=== PATIENT | female | born 2000 | race Two or more races ===

== ENCOUNTER → 2024-10-31 | Outpatient (CLI) | payer SELFPAY ==
[2024-10-31 12:35] LABS: Basophils # (auto) 0 10 ^3/uL (0-0.2); Basophils % (auto) 0.1 % (0.0-2.0); Eosinophils # (auto) 0.1 10 ^3/uL (0-0.8); Hematocrit 35.3 % (36.0-46.0); Hemoglobin 12.2 g/dL (12.2-16.2); Lymphocytes # (auto) 1.2 10 ^3/uL (0.4-5.4); Lymphocytes % (auto) 14.2 % (10.0-50.0); Mean Corpuscular Hgb Conc. 34.4 g/dL (32.0-36.0); Monocytes # (auto) 0.5 10 ^3/uL (0-1.3); Monocytes % (auto) 6.3 % (0.0-12.0); Neutrophils # (auto) 6.4 10 ^3/uL (1.6-8.6); Neutrophils % (auto) 78.4 % (37.0-80.0); Platelet Count (auto) 197 10^3/uL (140-450); Red Blood Cells 3.93 10^6/uL (4.0-5.20); Red Cell Distribution Width 15.2 % (11.8-14.3); White Blood Cell 8.2 10^3/uL (4.4-10.8)
== END | disposition home or self-care (01) ==
LOC: LAB 11:29
PROVIDERS: ATTEND Obstetrics & Gynecology
DX: Z34.80 Encounter for supervision of other normal pregnancy, unspecified trimester (principal); Z72.51 High risk heterosexual behavior; Z3A.00 Weeks of gestation of pregnancy not specified
CPT/HCPCS: 36415; 85025; 86703; 86762; 86780; 86850; 86900; 86901; 87086; 87340

== ENCOUNTER 2024-11-11 23:06 | Inpatient (IN) | payer SELFPAY ==
[~2024-11-11] VITALS: Ht 162.6 cm; Wt 94.8 kg
[2024-11-11] MEDS ORDERED: LIDOCAINE 2%HCL (LOCAL ANESTH.) INJ 20ML MDV IJ PRN (23:30)
[2024-11-11] MEDS ORDERED: ONDANSETRON HCL 4 MG/2 ML VIAL IV PRN (23:30)
[2024-11-11 23:58] LABS: Basophils # (auto) 0.1 10 ^3/uL (0-0.2); Basophils % (auto) 0.5 % (0.0-2.0); Eosinophils # (auto) 0.1 10 ^3/uL (0-0.8); Eosinophils % (auto) 1.4 % (0.0-7.0); Hemoglobin 12.3 g/dL (12.2-16.2); Lymphocytes # (auto) 1.8 10 ^3/uL (0.4-5.4); Lymphocytes % (auto) 18.3 % (10.0-50.0); Mean Corpuscular Hgb Conc. 34.3 g/dL (32.0-36.0); Mean Corpuscular Volume 90.4 fL (80.0-100.0); Monocytes # (auto) 0.6 10 ^3/uL (0-1.3); Monocytes % (auto) 6.2 % (0.0-12.0); Neutrophils # (auto) 7.4 10 ^3/uL (1.6-8.6); Neutrophils % (auto) 73.6 % (37.0-80.0); Nucleated Red Blood Cells % 0.1 %; Platelet Count (auto) 199 10^3/uL (140-450); Red Blood Cells 3.98 10^6/uL (4.0-5.20); Red Cell Distribution Width 16.3 % (11.8-14.3)
[2024-11-12] MEDS: LACTATED RINGER'S 1,000 ML IV SCH
[2024-11-12] MEDS: PHISODERM TOP SOLN 240ML BTL TOP PRN
[2024-11-12] MEDS: WITCH HAZEL-GLYCERIN PAD TOP PRN
[2024-11-12] MEDS: DERMOPLAST 60ML BOTTLE TOP PRN
[2024-11-12 00:09] LABS: Urine Bacteria FEW /hpf (None Seen); Urine Blood Negative /uL (Negative); Urine Clarity Clear (Clear); Urine Color Light-Yellow (Yellow); Urine Mucus FEW (None Seen); Urine Protein, UAD Negative (Negative); Urine Specific Gravity 1.025 (1.001-1.035); Urine Squamous Epithelial Cell FEW /hpf (<5); Urine Urobilinogen Normal (Negative); Urine WBC 3 /HPF (0-5); Urine pH 6.5 (5.0-9.0)
[2024-11-12 00:15] LABS: INR 0.95 (0.9-1.15); Partial Thromboplastin Time 29.2 SEC (24.5-34.5); Prothrombin Time 10.1 sec (9.3-11.8)
[2024-11-12 00:16] LABS: Alanine Aminotransferase 11 U/L (7-40); Anion Gap 9 (5-15); BUN/Creatinine Ratio 20.3 (10.0-20.0); Blood Urea Nitrogen 13 mg/dL (9-23); Calcium 9.3 mg/dL (8.7-10.4); Carbon Dioxide 20 mmol/L (20-31); Glucose 98 mg/dL (74-106); Potassium 3.8 mmol/L (3.5-5.1); Sodium 138 mmol/L (136-145); Total Protein 6.8 g/dL (5.7-8.2)
[2024-11-12 00:17] LABS: Alkaline Phosphatase 154 U/L (46-116); Aspartate Aminotransferase 16 U/L (13-40); Bilirubin, Total 0.2 mg/dL (0.2-1.0); Chloride 109 mmol/L (98-107)
[2024-11-12 00:29] LABS: Amphetamine Screen, Urine Neg (NEGATIVE); Barbiturate Scree,Urine Neg (NEGATIVE); Benzodiazephine Screen, Urine Neg (NEGATIVE); Cannabinoid Screen, Urine Neg (NEGATIVE); Cocaine Screen, Urine Neg (NEGATIVE); Opiate Scree,Urine Neg (NEGATIVE); Phencyclidine Screen, Urine Neg (NEGATIVE)
[2024-11-12] MEDS: miSOPROStol 50 MCG per PRE-CUT 1/2 TAB PO PRN (00:34)
[2024-11-12] MEDS ORDERED: TERBUTALINE SULFATE 1 MG/ML 1ML VIAL SC PRN (01:30)
--- NOTE | 2024-11-12 05:29 | DVHHP ---
CHIEF COMPLAINT: Here for induction of labor. HISTORY OF PRESENT ILLNESS: The patient is a 24-year-old 1, para 0 with EDC 02/17, estimated gestational age of 39 weeks, admitted for induction of labor. The patient denies having any vaginal bleeding or rupture of membranes. PAST MEDICAL HISTORY: None. PAST SURGICAL HISTORY: None. SOCIAL HISTORY: None. FAMILY HISTORY: None. OBSTETRIC AND GYNECOLOGIC HISTORY: Primigravid, blood type A positive, rubella equivocal, GBS negative. ALLERGIES: No known drug allergies. REVIEW OF SYSTEMS: Consistent with HPI. PHYSICAL EXAMINATION: VITAL SIGNS: Stable, afebrile. HEENT: Within normal limits. CARDIOVASCULAR: Regular rate and rhythm. LUNGS: Clear to auscultation. BREASTS: Symmetrical. No masses. ABDOMEN: Gravid. Positive heart. PELVIC: Closed, thick, high. EXTREMITIES: No clubbing, cyanosis or edema. IMPRESSION: Intrauterine at 39+ weeks for induction of labor. PLAN: Induction of labor. Proceed. We will proceed with Cytotec. Informed consent obtained. The patient wishes to proceed with planned induction. DO EUGENE Reaves TID: [id number] RECEIPT: [id number]
--- NOTE | 2024-11-12 07:29 | DVHPN2 ---
Chief Complaints Patient reports: No new complaints Nursing reports: No new complaints Objective Medications Current Medications Medications (Trade) Dose Ordered Sig/Jose C Route PRN Reason Start Time Stop Time Status Last Admin Benzocaine (Dermoplast) 1 applic PRN PRN TOP PERINEAL AREA DISCOMFORT 11/11/24 23:30 11/12/24 00:00 Lactated Ringer's 1,000 ml @ 125 mls/hr Q8H IV 11/11/24 23:30 11/12/24 04:57 Lidocaine HCl (Xylocaine) 20 ml ONCE PRN IJ PERINEAL AREA DISCOMFORT 11/11/24 23:30 Misoprostol (Cytotec) 50 mcg Q4HPRN PRN PO CERVICAL RIPENING 11/11/24 23:30 11/12/24 05:32 Nalbuphine HCl (Nubain) 10 mg Q4HP PRN IV MODERATE PAIN (4-6 PAIN SCALE) 11/11/24 23:30 Ondansetron HCl (Zofran) 4 mg Q6HPRN PRN IV NAUSEA / VOMITING 11/11/24 23:30 Sodium Lauryl Sulfate (Phisoderm) 240 ml PRN PRN TOP PERINEAL AREA DISCOMFORT 11/11/24 23:30 11/12/24 00:00 Terbutaline Sulfate (Brethine Inj) 0.25 mg ONCE PRN SC Uterine tachysystole 11/12/24 01:30 Marek Franco (Tucks) 1 pad PRN PRN TOP PERINEAL AREA DISCOMFORT 11/11/24 23:30 11/12/24 00:00 Others ve-unchanged Studies Laboratory Tests 11/11/24 23:44 Test 11/11/24 23:44 Range/Units Serum Glucose 98 74-106 mg/dL Ass/Plan Assessment induction of labor Plan rec 2 cytotec pt endorsed to dr rutherford oncoming physician Visit Coding OBGYN Date of Service: November 12, 2024 Billing Provider: SANJANA LANGE DO PHYSICAL THERAPY TECHNICIAN Common Visit Codes: 37751-UAM/OBS SAME DATE (HIGH) PHYSICAL THERAPY TECHNICIAN Procedure Codes: 78584-33- NON-STRESS TEST SANJANA LANGE DO November 12, 2024 07:29
[2024-11-12] MEDS: DINOPROSTONE 10MG VAG SUPP PV ONE (23:31)
[2024-11-13] MEDS: NALBUPHINE HCL 10 MG/1ml INJECTION IV PRN (04:05)
[2024-11-13] MEDS ORDERED: OXYTOCIN 20 UNT in SODIUM CHLORIDE 0.9% 1,000 ML IV ONE (06:00)
[2024-11-13] MEDS ORDERED: LACT. RINGERS/OXYTOCIN 20UNITS 500 ML IV ONE (06:00)
[2024-11-13] MEDS: LACT. RINGERS/OXYTOCIN 20UNITS 1,000 ML IV SCH (07:29)
--- NOTE | 2024-11-13 09:15 | DVHPN2 ---
Chief Complaints Patient reports: No new complaints Nursing reports: No new complaints, No chest pain, No dizziness, No cough Objective Vitals Vital Signs Date Time Temp Pulse Resp B/P (MAP) Pulse Ox O2 Delivery O2 Flow Rate FiO2 11/13/24 05:05 83 16 112/59 Medications Current Medications Medications (Trade) Dose Ordered Sig/Jose C Route PRN Reason Start Time Stop Time Status Last Admin Oxytocin 1,000 ml @ 6 ml/hr Q24H IV 11/13/24 06:00 11/13/24 07:29 General: Normal Neck: Normal Lungs: Normal Cardiovascular: Normal Abdominal: Soft Musculoskeletal: Normal Extremities: Normal Skin: Normal Neurological: Normal Studies Laboratory Tests 11/11/24 23:44 Test 11/11/24 23:44 Range/Units Serum Glucose 98 74-106 mg/dL Ass/Plan Assessment 39+ weeks induction of labor Plan continue induction SONYA GRECO DO November 13, 2024 09:15
[2024-11-13] MEDS: ePHEDrine SULFATE 50 MG/ML AMP ONE (09:59)
[2024-11-13] MEDS: ePHEDrine SULFATE 50 MG/ML AMP IV ONE (10:00)
[2024-11-13] MEDS: NALOXONE HCL 0.4 MG/ML VIAL IV ONE (10:00)
[2024-11-13] MEDS: ROPIVACAINE HCL 200 ML ONE (10:26)
[2024-11-13] MEDS: LACT. RINGERS/OXYTOCIN 20UNITS 500 ML IV ONE ×2 (15:51)
--- NOTE | 2024-11-13 16:36 | LDN2 ---
Labor and Delivery Note Date 11/13/24 Age 24 1 Para 1 AB n/a EDC 11/17/2024 EGA 39.2 weeks Diagnosis IOL then Vaginal Delivery: VTX Vacuum Assisted: No Placenta: Spontaneous Sex: Female Weight 3440 grams Apgars 8/9 Nuchal Cord Transected: No Amniotic Fluid: Clear Anesthesia Epidural Episiotomy: No Extension: No Repaired with 3-0 Chromic suture EBL QBL: 150 mL Labs Laboratory Tests 10/31/24 11:56: Hepatitis B Surface Antigen Negative, HIV (1&2) Antibody Negative, Rubella Antibody Equivocal Blood Bank 11/11/24 23:44: Blood Type A POSITIVE Complications n/a Conditions Stable Broadcast Chief Engineer Dr. Connell Comments/Significant Med [place] At 1530 this 24yo now delivered a viable Female infant by w/ APGARS 8/9. VÍCTOR. Infant placed skin to skin on pts chest. Cord clamped and cut after 2 minutes. Cord blood sent. Intact 3-vessel cord placenta delivered spontaneously, Lor. Pitocin IV bolus started. Placenta sent to pathology. Patient had epidural anesthesia. Cervix/vagina inspected (intact) and first degree perineal and bilateral labial lacerations present which was repaired with 3-0 Chromic suture. Fundus at U, firm, midline, and light lochia. QBL 150ml. VSS. Count correct x2. Patient to care and baby to couplet care, both stable. Visit Coding OBGYN Date of Service: November 13, 2024 Billing Provider: SONYA GRECO DO CNC SPECIALIST Common Visit Codes: PROCEDURE ONLY CNC SPECIALIST Procedure Codes: 29364-[id number] DEL INCLUDING MOHINDER HARE MDWF November 13, 2024 16:36
[2024-11-13 19:00] VITALS: BP 123/58; PULSE 75; RESP 18; TEMP 99.2; O2SAT 98
[2024-11-13] MEDS ORDERED: ONDANSETRON ODT 4 MG TAB PO PRN (20:00)
[2024-11-13] MEDS: ACETAMINOPHEN 325 MG TAB PO PRN (20:18)
[2024-11-13] MEDS: DOCUSATE SOD 100 MG CAP PO SCH (22:00)
[2024-11-13 23:00] VITALS: BP 113/66; PULSE 74; RESP 16; TEMP 97.7; O2SAT 97
[2024-11-14 03:00] VITALS: BP 111/70; PULSE 68; RESP 18; TEMP 98.6; O2SAT 99
[2024-11-14] MEDS: IBUPROFEN 600 MG TAB PO PRN (03:11)
--- NOTE | 2024-11-14 05:52 | DVHPN2 ---
Chief Complaints Patient reports: No new complaints, Feels better Nursing reports: No new complaints, No abdominal pain, No chest pain, No dizziness, No cough Objective Vitals Vital Signs Date Time Temp Pulse Resp B/P (MAP) Pulse Ox O2 Delivery O2 Flow Rate FiO2 11/14/24 03:00 98.6 68 18 111/70 (84) 99 98.6 11/13/24 20:30 Room Air Medications Current Medications Medications (Trade) Dose Ordered Sig/Jose C Route PRN Reason Start Time Stop Time Status Last Admin Acetaminophen (Tylenol Tablet) 650 mg Q4HP PRN PO MILD PAIN (1-3 PAIN SCALE) 11/13/24 20:00 11/13/24 20:18 Docusate Sodium (Colace Capsule) 200 mg HS PO 11/13/24 22:00 Ibuprofen (Motrin Tablet) 600 mg Q6HP PRN PO MODERATE PAIN (4-6 PAIN SCALE) 11/13/24 20:00 11/14/24 03:11 Ondansetron HCl (Zofran Po) 4 mg Q4HPRN PRN PO NAUSEA / VOMITING 11/13/24 20:00 General: Normal Neck: Normal Lungs: Normal Cardiovascular: Normal Abdominal: Soft (uterus firm 18 weeks size) Musculoskeletal: Normal Extremities: Normal Skin: Normal Neurological: Normal Studies Laboratory Tests 11/11/24 23:44 Test 11/11/24 23:44 Range/Units Serum Glucose 98 74-106 mg/dL Ass/Plan Assessment 39+ weeks induction of labor Plan see dc summary see dc orders SONYA GRECO DO November 14, 2024 05:52
--- NOTE | 2024-11-14 05:56 | DVHDS2 ---
Discharge Summary Date of Admission November 11, 2024 at 23:06 Date of Discharge: November 14, 2024 Labs/Diagnostic Data: Laboratory Results Test 11/11/24 23:55 11/11/24 23:44 Urine Color Light-yellow (Yellow) Urine Clarity Clear (Clear) Urine pH 6.5 (5.0-9.0) Urine Specific [place] 1.025 (1.001-1.035) Urine Protein Negative (Negative) Urine Ketones Negative (Negative) Urine Blood Negative /uL (Negative) Urine Nitrite Negative (Negative) Urine Bilirubin Negative (Negative) Urine Urobilinogen Normal mg/dL (Negative) Urine Leukocyte Esterase 1+ /uL (Negative) Urine RBC 1 /hpf (0 - 4) Urine Microscopic WBC 3 /HPF (0-5) Urine Squamous Epithelial Cells Few /hpf (<5) Urine Bacteria Few /hpf (None Seen) Urine Mucus Few (None Seen) Urine Glucose Normal mg/dL (Normal) Urine Opiates Screen Neg (NEGATIVE) Urine Fentanyl Screen Neg (NEGATIVE) Urine Barbiturates Screen Neg (NEGATIVE) Urine Phencyclidine Screen Neg (NEGATIVE) Urine Amphetamines Screen Neg (NEGATIVE) Urine Benzodiazepines Screen Neg (NEGATIVE) Urine Cocaine Screen Neg (NEGATIVE) Urine Cannabinoids Screen Neg (NEGATIVE) White Blood Count 10.0 10^3/uL (4.4-10.8) Red Blood Count 3.98 10^6/uL (4.0-5.20) Hemoglobin 12.3 g/dL (12.2-16.2) Hematocrit 36.0 % (36.0-46.0) Mean Corpuscular Volume 90.4 fL (80.0-100.0) Mean Corpuscular Hemoglobin 31.0 pg (28.0-32.0) Mean Corpuscular Hemoglobin Concent 34.3 g/dL (32.0-36.0) Red Cell Distribution Width 16.3 % (11.8-14.3) Platelet Count 199 10^3/uL (140-450) Mean Platelet Volume 8.6 fL (6.9-10.8) Neutrophils (%) (Auto) 73.6 % (37.0-80.0) Lymphocytes (%) (Auto) 18.3 % (10.0-50.0) Monocytes (%) (Auto) 6.2 % (0.0-12.0) Eosinophils (%) (Auto) 1.4 % (0.0-7.0) Basophils (%) (Auto) 0.5 % (0.0-2.0) Neutrophils # (Auto) 7.4 10 ^3/uL (1.6-8.6) Lymphocytes # (Auto) 1.8 10 ^3/uL (0.4-5.4) Monocytes # (Auto) 0.6 10 ^3/uL (0-1.3) Eosinophils # (Auto) 0.1 10 ^3/uL (0-0.8) Basophils # (Auto) 0.1 10 ^3/uL (0-0.2) Nucleated Red Blood Cells 0.1 % Prothrombin Time 10.1 sec (9.3-11.8) Prothrombin Time INR 0.95 (0.9-1.15) Activated Partial Thromboplast Time 29.2 SEC (24.5-34.5) Sodium Level 138 mmol/L (136-145) Potassium Level 3.8 mmol/L (3.5-5.1) Chloride Level 109 mmol/L (98-107) Carbon Dioxide Level 20 mmol/L (20-31) Anion Gap 9 (5-15) Blood Urea Nitrogen 13 mg/dL (9-23) Creatinine 0.64 mg/dL (0.550-1.02) Glomerular Filtration Rate Calc 126 mL/min (>90) BUN/Creatinine Ratio 20.3 (10.0-20.0) Serum Glucose 98 mg/dL (74-106) Calcium Level 9.3 mg/dL (8.7-10.4) Total Bilirubin 0.2 mg/dL (0.2-1.0) Aspartate Amino Transferase (AST) 16 U/L (13-40) Alanine Aminotransferase (ALT) 11 U/L (7-40) Alkaline Phosphatase 154 U/L (46-116) Total Protein 6.8 g/dL (5.7-8.2) Albumin 4.0 g/dL (3.2-4.8) Treponema pallidum Antibody Non-reactive (Negative) Hepatitis C Antibody Negative (Negative) Other Laboratory Tests 11/11/24 23:44 Brief Hx & Hospital Course: no sig Operations or Procedures non Condition at Discharge: Good Final Diagnosis/Problems List labor s/p Discharge Disposition: Home Discharge Instruct/Medications Diet: Regular Follow Up/Referral: 2 weeks or prn primary OB physician Medications: none Discharge Statement: "Patient was advised to return to the ER or call 911 if any headaches, dizziness, shortness of breath, chest pain, abdominal pain, bleeding, fevers, or worsening of medical condition. Patient was counseled about treatment plan, medications, possible side effects, patientverbalized understanding. All questions were answered to the best of my ability. This discharge took greater then 30 minutes in planning, reviewing documentation, counseling the patient, and discussing with other team members." ASSESSMENT ASSESSMENT Assessment Visit Coding OBGYN Date of Service: November 14, 2024 Billing Provider: SONYA GRECO DO BINGO ATTENDANT Common Visit Codes: 35779-RBL/OBS SAME DATE (HIGH) BINGO ATTENDANT Procedure Codes: [id number] DEL INCLUDING SONYA GRECO DO November 14, 2024 05:56
[2024-11-14 07:00] VITALS: BP 115/69; PULSE 69; RESP 16; TEMP 98.2; O2SAT 97
[2024-11-14] MEDS ORDERED: MEASLES, MUMPS & RUBELLA VAC(MMRII) 0.5ML SC ONE (08:45)
[2024-11-14 11:00] VITALS: BP 115/57; PULSE 90; RESP 16; TEMP 98.3; O2SAT 95
[2024-11-14 15:00] VITALS: BP 111/71; PULSE 77; RESP 16; TEMP 98; O2SAT 97
[2024-11-14 19:06] LABS: Chlamydia Trachomatis, NAA Negative (Negative); Neisseria gonorrhoeae, NAA Negative (Negative)
== END 2024-11-14 17:00 | disposition home or self-care (01) | DRG 807 ==
LOC: LDRP 23:06
PROVIDERS: ADMIT Obstetrics & Gynecology; ATTEND Obstetrics & Gynecology
PROC: 10E0XZZ Delivery of Products of Conception, External Approach (ICD-10-PCS; principal; 2024-11-13)
PROC: 3E033VJ Introduction of Other Hormone into Peripheral Vein, Percutaneous Approach (ICD-10-PCS; 2024-11-13)
PROC: 3E0DXGC Introduction of Other Therapeutic Substance into Mouth and Pharynx, External Approach (ICD-10-PCS; 2024-11-13)
PROC: 0HQ9XZZ Repair Perineum Skin, External Approach (ICD-10-PCS; 2024-11-13)
PROC: 3E0R3BZ Introduction of Anesthetic Agent into Spinal Canal, Percutaneous Approach (ICD-10-PCS; 2024-11-13)
PROC: 00HU33Z Insertion of Infusion Device into Spinal Canal, Percutaneous Approach (ICD-10-PCS; 2024-11-13)
DX: O70.0 First degree perineal laceration during delivery (principal); Z37.0 Single live birth; Z3A.39 39 weeks gestation of pregnancy
CPT/HCPCS: 36415; 59025; 59409; 62282; 80053; 80307; 81001; 85025; 85610; 85730; 86780; 86803; 86850; 86900; 86901; 94760; 94762; 96360; 96361; 96365; 96366; 96374; G0378; J2590